=== PATIENT | female | born 1955 | race Asian ===

== ENCOUNTER 2019-03-23 11:12 | Outpatient (CLI) | payer BC ==
--- NOTE | 2019-03-23 11:38 | RAD ---
XR Lumbar Spine 2 Or 3 View HISTORY: Back pain COMPARISON: None. FINDINGS: The vertebral bodies are normal in height there are degenerative osteophytes along the cour se the spine without significant disc narrowing. Pedicles appear intact. Pseudarthrosis of the left L5 transverse process with the sacrum is noted. Small sclerotic bony densities seen involving the L4 vertebral body this is most likely a bone island unlikely to represent a solitary bone metastases. IMPRESSION: Arthritic changes of the spine.
--- NOTE | 2019-03-23 11:39 | RAD ---
XR Shoulder Lt 3 View STANDARD HISTORY: Shoulder pain status post injury COMPARISON: None. FINDINGS: There are no signs of fracture or dislocation. The bones appear demineralized. IMPRESSION: No evidence of fracture or dislocation.
== END 2019-03-23 11:13 | disposition home or self-care (01) ==
LOC: SCSRAD 11:12
PROVIDERS: ATTEND Chiropractor
DX: S04.012A Injury of optic nerve, left eye, initial encounter (principal); M54.5 Low back pain; M47.816 Spondylosis without myelopathy or radiculopathy, lumbar region
CPT/HCPCS: 72100

== ENCOUNTER 2025-05-17 09:31 | Outpatient (CLI) | payer MEDICARE | END 2025-05-17 09:32 | disposition home or self-care (01) | LOC: SCSBT 09:31 | PROVIDERS: ATTEND Student in an Organized Health Care Education/Training Program | DX: Z78.0 Asymptomatic menopausal state (principal); M81.0 Age-related osteoporosis without current pathological fracture; M85.851 Other specified disorders of bone density and structure, right thigh; M85.852 Other specified disorders of bone density and structure, left thigh | CPT/HCPCS: 77080 ==